=== PATIENT | male | born 1965 | race Caucasian/White ===

== ENCOUNTER 2020-02-28 14:59 | Inpatient (IN) ==
[2020-02-28] MEDS ORDERED: GLUCAGON 1 MG VIAL IM PRN (18:33)
[2020-02-28] MEDS ORDERED: DEXTROSE 50% 25 GM/50 ML VIAL IV PRN (18:33)
[2020-02-28] MEDS ORDERED: hydrALAZINE 20 MG/1 ML VIAL IV PRN (18:33)
[2020-02-28] MEDS ORDERED: ONDANSETRON 4 MG/2 ML VIAL IV PRN (18:33)
[2020-02-28] MEDS ORDERED: ACETAMINOPHEN 325 MG TABLET PO PRN (18:33)
[2020-02-28] MEDS ORDERED: METOPROLOL TARTRATE 50 MG TABLET PO SCH (18:40)
[2020-02-28] MEDS ORDERED: FUROSEMIDE 40 MG/4 ML VIAL IV ONE (18:53)
[2020-02-28 19:29] LABS: Basophils # 0.1 10*3/uL (0.0-0.2); Basophils % 0.5 % (0.0-0.8); Eosinophils % 0.2 % (0.00-10.9); Hematocrit 41.2 VOL% (42.0-52.0); Hemoglobin 14.1 GM/DL (14.0-18.0); Immature Granulocytes % 0.5 %; Immature Granulocytes Absolute 0.08 #; Lymphocytes % 11.6 % (21.2-54.2); Mean Corpuscular HGB Conc 34.2 GM/DL (32-36); Mean Corpuscular Volume 84.1 FL (87-102); Mean Platelet Volume 11.6 FL (9.6-12.0); Monocytes % 7.4 % (1.7-12.7); Neutrophils % 79.8 % (38.7-73.9); Platelet Count 349 T/CUMM (130-400); Red Cell Distribution Width 13.6 % (9.3-17.3); White Blood Count 16.9 T/CUMM (4-12)
[2020-02-28 19:38] LABS: INR 1.3; PT Patient Result 13.6 SECS (9.8-11.9); Partial Thromboplastin Time 29.2 SECS (23.9-33.8)
[2020-02-28 19:54] LABS: Risk Ratio 6.74; VLDL CHOLESTEROL 21.6 MG/DL
[2020-02-28 20:00] LABS: Albumin 3.4 G/DL (3.4-5.0); Bilirubin,Total 1.3 MG/DL (0.2-1.0); Calcium 8.8 MG/DL (8.5-10.1); Osmolality,Calculated 263.8 MOS/KG (273-304); Thyroid Stimulating Hormone 2.17 uIU/ml (0.358-3.74)
[2020-02-28] MEDS: APIXABAN 5 MG TABLET PO SCH (21:03)
[2020-02-28] MEDS: carvediloL 6.25 MG TABLET PO SCH (21:03)
[2020-02-28] MEDS: FOLIC ACID 1 MG TABLET PO SCH (21:04)
[2020-02-28] MEDS: cefTRIAXone 1,000 MG in SODIUM CHLORIDE 0.9% 100 ML IV SCH (21:04)
[2020-02-28] MEDS: dilTIAZem Drip 125 MG/125 ML PREMIX IV SCH (21:30)
[2020-02-28] MEDS: THIAMINE 100 MG TABLET PO SCH (23:50)
[2020-02-29] MEDS: INSULIN REGULAR 100 UNIT/ML SUBCUT SCH ×5 (00:04→23:16)
[2020-02-29 05:34] LABS: Barbiturates Screen,Urine Negative (Negative); Benzodiazepines Screen,Urine Negative (Negative); Cannabinoid Screen,Urine Negative (Negative); Opiate Screen,Urine Negative (Negative); Phencyclidine Screen,Urine Negative (Negative)
[2020-02-29 05:46] LABS: Basophils # 0.1 10*3/uL (0.0-0.2); Basophils % 0.5 % (0.0-0.8); Eosinophils # 0.1 10*3/uL (0.0-0.87); Eosinophils % 0.8 % (0.00-10.9); Hematocrit 39.8 VOL% (42.0-52.0); Hemoglobin 13.4 GM/DL (14.0-18.0); Immature Granulocytes % 0.7 %; Lymphocytes # 2.1 10*3/uL (1.4-4.0); Lymphocytes % 14.9 % (21.2-54.2); Mean Corpuscular HGB Conc 33.7 GM/DL (32-36); Mean Corpuscular Volume 84.9 FL (87-102); Mean Platelet Volume 11.7 FL (9.6-12.0); Neutrophils % 73.1 % (38.7-73.9); Platelet Count 341 T/CUMM (130-400); Red Blood Count 4.69 MC/CUMM (3.8-5.5); Red Cell Distribution Width 13.9 % (9.3-17.3); White Blood Count 14.3 T/CUMM (4-12)
[2020-02-29 05:51] LABS: Amorphous Crystals,Urine Moderate /HPF (Few); Bilirubin,Urine Negative (Negative); Blood, Urine Moderate mg/dL (Negative); Glucose,Urine (UA) Negative (Negative); Hyaline Casts,Urine 19 /LPF (0-3); Ketones,Urine Negative (Negative); Mucus,Urine Few /LPF (Occasional); Nitrite,Urine Negative (Negative); Protein,Urine 30 MG/DL; RBC,Urine 55 /HPF (0-4); Squamous Epithelial Cell,Urine Occasional /HPF (0-10); Urine Appearance CLOUDY (Clear); Urine Color Amber (Yellow); Urine Specific Gravity 1.012 (1.001-1.035); WBC,Urine 5 /HPF (0-6)
[2020-02-29 06:00] LABS: Calcium 8.6 MG/DL (8.5-10.1); Osmolality,Calculated 261.9 MOS/KG (273-304)
[2020-02-29] MEDS: dilTIAZem Drip 125 MG/125 ML PREMIX IV SCH ×2 (07:48→23:03)
[2020-02-29] MEDS: APIXABAN 5 MG TABLET PO SCH ×2 (09:43→22:18)
[2020-02-29] MEDS: FOLIC ACID 1 MG TABLET PO SCH (09:43)
[2020-02-29] MEDS: PANTOPRAZOLE 40 MG TABLET PO SCH (09:43)
[2020-02-29] MEDS: THIAMINE 100 MG TABLET PO SCH (09:43)
[2020-02-29] MEDS: carvediloL 6.25 MG TABLET PO SCH ×2 (09:43→16:40)
[2020-02-29] MEDS ORDERED: guaiFENesin 200 MG/10 ML UDCUP PO PRN (10:54)
[2020-02-29] MEDS: TAMSULOSIN 0.4 MG CAPSULE PO SCH (22:17)
[2020-02-29] MEDS: cefTRIAXone 1,000 MG in SODIUM CHLORIDE 0.9% 100 ML IV SCH (22:18)
[2020-03-01 04:56] LABS: Basophils # 0.1 10*3/uL (0.0-0.2); Basophils % 0.7 % (0.0-0.8); Eosinophils # 0.3 10*3/uL (0.0-0.87); Hematocrit 40.1 VOL% (42.0-52.0); Hemoglobin 13.5 GM/DL (14.0-18.0); Immature Granulocytes % 0.5 %; Immature Granulocytes Absolute 0.06 #; Lymphocytes # 2.5 10*3/uL (1.4-4.0); Lymphocytes % 20.6 % (21.2-54.2); Mean Corpuscular HGB Conc 33.7 GM/DL (32-36); Mean Corpuscular Volume 85.3 FL (87-102); Mean Platelet Volume 11.5 FL (9.6-12.0); Monocytes % 10.5 % (1.7-12.7); Neutrophils % 65.7 % (38.7-73.9); Platelet Count 263 T/CUMM (130-400); Red Cell Distribution Width 13.6 % (9.3-17.3); White Blood Count 12.3 T/CUMM (4-12)
[2020-03-01 05:28] LABS: Calcium 8.4 MG/DL (8.5-10.1); Osmolality,Calculated 259.1 MOS/KG (273-304)
[2020-03-01] MEDS: INSULIN REGULAR 100 UNIT/ML SUBCUT SCH ×4 (09:13→22:30)
[2020-03-01] MEDS: APIXABAN 5 MG TABLET PO SCH (10:05)
[2020-03-01] MEDS: METOPROLOL TARTRATE 25 MG TABLET PO SCH ×2 (10:05→22:25)
[2020-03-01] MEDS: PANTOPRAZOLE 40 MG TABLET PO SCH (10:05)
[2020-03-01] MEDS: FOLIC ACID 1 MG TABLET PO SCH (10:05)
[2020-03-01] MEDS: LOSARTAN 25 MG TABLET PO SCH (10:05)
[2020-03-01] MEDS: THIAMINE 100 MG TABLET PO SCH (10:06)
[2020-03-01] MEDS ORDERED: FUROSEMIDE 40 MG/4 ML VIAL IV ONE (10:12)
[2020-03-01] MEDS: carvediloL 6.25 MG TABLET PO SCH (10:15)
[2020-03-01] MEDS: FUROSEMIDE 40 MG/4 ML VIAL IV SCH (16:52)
[2020-03-01] MEDS: dilTIAZem Drip 125 MG/125 ML PREMIX IV SCH (20:53)
[2020-03-01] MEDS: POTASSIUM CHLORIDE 20 MEQ TABLET PO SCH (22:25)
[2020-03-01] MEDS: TAMSULOSIN 0.4 MG CAPSULE PO SCH (22:25)
[2020-03-01] MEDS: cefTRIAXone 1,000 MG in SODIUM CHLORIDE 0.9% 100 ML IV SCH (22:30)
[2020-03-02 06:01] LABS: Basophils # 0.1 10*3/uL (0.0-0.2); Basophils % 0.6 % (0.0-0.8); Eosinophils # 0.2 10*3/uL (0.0-0.87); Eosinophils % 1.9 % (0.00-10.9); Hematocrit 39.4 VOL% (42.0-52.0); Hemoglobin 13.5 GM/DL (14.0-18.0); Immature Granulocytes % 0.5 %; Immature Granulocytes Absolute 0.06 #; Lymphocytes # 1.7 10*3/uL (1.4-4.0); Lymphocytes % 14.6 % (21.2-54.2); Mean Corpuscular HGB Conc 34.3 GM/DL (32-36); Mean Corpuscular Volume 84.2 FL (87-102); Mean Platelet Volume 11.6 FL (9.6-12.0); Monocytes % 9.1 % (1.7-12.7); Neutrophils % 73.3 % (38.7-73.9); Platelet Count 284 T/CUMM (130-400); Red Blood Count 4.68 MC/CUMM (3.8-5.5); Red Cell Distribution Width 13.7 % (9.3-17.3); White Blood Count 11.8 T/CUMM (4-12)
[2020-03-02 06:21] LABS: Calcium 8.3 MG/DL (8.5-10.1); Osmolality,Calculated 259.9 MOS/KG (273-304)
[2020-03-02 06:24] LABS: Hypochromasia 1+; Microcytosis 1+
[2020-03-02 06:25] LABS: Platelet Estimate Normal
[2020-03-02] MEDS: INSULIN REGULAR 100 UNIT/ML SUBCUT SCH ×4 (07:22→21:32)
[2020-03-02] MEDS ORDERED: METOPROLOL TARTRATE 50 MG TABLET PO SCH (08:42)
[2020-03-02] MEDS: FUROSEMIDE 40 MG/4 ML VIAL IV SCH ×2 (08:45→15:36)
[2020-03-02] MEDS: THIAMINE 100 MG TABLET PO SCH (08:46)
[2020-03-02] MEDS: POTASSIUM CHLORIDE 20 MEQ TABLET PO SCH ×2 (08:47→21:31)
[2020-03-02] MEDS: FOLIC ACID 1 MG TABLET PO SCH (08:47)
[2020-03-02] MEDS: LOSARTAN 25 MG TABLET PO SCH (08:47)
[2020-03-02] MEDS: PANTOPRAZOLE 40 MG TABLET PO SCH (08:47)
[2020-03-02] MEDS: ASCORBIC ACID 500 MG TABLET PO SCH ×2 (11:56→21:31)
[2020-03-02] MEDS ORDERED: POTASSIUM CHLORIDE 20 MEQ TABLET PO ONE (13:30)
[2020-03-02] MEDS: dilTIAZem Drip 125 MG/125 ML PREMIX IV SCH (20:06)
[2020-03-02] MEDS: TAMSULOSIN 0.4 MG CAPSULE PO SCH (21:31)
[2020-03-02] MEDS: carvediloL 12.5 MG TABLET PO SCH (21:31)
[2020-03-02] MEDS: cefTRIAXone 1,000 MG in SODIUM CHLORIDE 0.9% 100 ML IV SCH (21:34)
[2020-03-03] MEDS: INSULIN REGULAR 100 UNIT/ML SUBCUT SCH ×4 (07:31→20:32)
[2020-03-03] MEDS: FUROSEMIDE 40 MG/4 ML VIAL IV SCH ×2 (08:13→15:52)
[2020-03-03] MEDS: POTASSIUM CHLORIDE 20 MEQ TABLET PO SCH ×2 (08:13→20:54)
[2020-03-03] MEDS: ASCORBIC ACID 500 MG TABLET PO SCH ×2 (08:13→20:55)
[2020-03-03] MEDS: carvediloL 12.5 MG TABLET PO SCH ×2 (08:13→20:55)
[2020-03-03] MEDS: PANTOPRAZOLE 40 MG TABLET PO SCH (08:14)
[2020-03-03] MEDS: LOSARTAN 25 MG TABLET PO SCH (08:14)
[2020-03-03] MEDS: THIAMINE 100 MG TABLET PO SCH (08:14)
[2020-03-03] MEDS: FOLIC ACID 1 MG TABLET PO SCH (08:14)
[2020-03-03] MEDS ORDERED: carvediloL 12.5 MG TABLET PO ONE (09:08)
[2020-03-03 09:33] LABS: Basophils # 0.1 10*3/uL (0.0-0.2); Basophils % 0.6 % (0.0-0.8); Eosinophils # 0.1 10*3/uL (0.0-0.87); Eosinophils % 1.2 % (0.00-10.9); Hematocrit 42.9 VOL% (42.0-52.0); Hemoglobin 14.4 GM/DL (14.0-18.0); Immature Granulocytes % 0.4 %; Immature Granulocytes Absolute 0.05 #; Lymphocytes # 1.9 10*3/uL (1.4-4.0); Lymphocytes % 16.9 % (21.2-54.2); Mean Corpuscular HGB Conc 33.6 GM/DL (32-36); Mean Corpuscular Volume 85.1 FL (87-102); Mean Platelet Volume 11.1 FL (9.6-12.0); Neutrophils % 70.9 % (38.7-73.9); Platelet Count 348 T/CUMM (130-400); Red Blood Count 5.04 MC/CUMM (3.8-5.5); White Blood Count 11.1 T/CUMM (4-12)
[2020-03-03 09:51] LABS: Calcium 8.7 MG/DL (8.5-10.1); Osmolality,Calculated 263.8 MOS/KG (273-304)
[2020-03-03] MEDS: TAMSULOSIN 0.4 MG CAPSULE PO SCH (20:55)
[2020-03-03] MEDS ORDERED: ATORVASTATIN 20 MG TABLET PO SCH (21:00)
[2020-03-04 05:57] LABS: Basophils # 0.1 10*3/uL (0.0-0.2); Basophils % 0.7 % (0.0-0.8); Eosinophils # 0.2 10*3/uL (0.0-0.87); Eosinophils % 1.7 % (0.00-10.9); Hematocrit 40.7 VOL% (42.0-52.0); Hemoglobin 13.5 GM/DL (14.0-18.0); Immature Granulocytes % 1.6 %; Immature Granulocytes Absolute 0.17 #; Lymphocytes # 1.9 10*3/uL (1.4-4.0); Lymphocytes % 17.6 % (21.2-54.2); Mean Corpuscular HGB Conc 33.2 GM/DL (32-36); Mean Corpuscular Volume 85.7 FL (87-102); Mean Platelet Volume 11.9 FL (9.6-12.0); Monocytes % 11.1 % (1.7-12.7); Neutrophils % 67.3 % (38.7-73.9); Platelet Count 293 T/CUMM (130-400); Red Blood Count 4.75 MC/CUMM (3.8-5.5); Red Cell Distribution Width 13.8 % (9.3-17.3); White Blood Count 10.7 T/CUMM (4-12)
[2020-03-04 06:19] LABS: Calcium 8.7 MG/DL (8.5-10.1); Osmolality,Calculated 268.2 MOS/KG (273-304)
[2020-03-04] MEDS: INSULIN REGULAR 100 UNIT/ML SUBCUT SCH (07:34)
[2020-03-04] MEDS: carvediloL 12.5 MG TABLET PO SCH (08:57)
[2020-03-04] MEDS: ASCORBIC ACID 500 MG TABLET PO SCH (08:57)
[2020-03-04] MEDS: POTASSIUM CHLORIDE 20 MEQ TABLET PO SCH (08:57)
[2020-03-04] MEDS: PANTOPRAZOLE 40 MG TABLET PO SCH (08:57)
[2020-03-04] MEDS: FOLIC ACID 1 MG TABLET PO SCH (08:57)
[2020-03-04] MEDS: THIAMINE 100 MG TABLET PO SCH (08:57)
[2020-03-04] MEDS: LOSARTAN 25 MG TABLET PO SCH (08:58)
[2020-03-04] MEDS: FUROSEMIDE 40 MG/4 ML VIAL IV SCH (08:58)
[2020-03-04] MEDS ORDERED: PNEUMOCOCCAL VACCINE (13 VALENT) 0.5 ML SYRINGE IM ONE (09:02)
[2020-03-04] MEDS ORDERED: INFLUENZA VIRUS VACCINE 0.5 ML SYRINGE IM ONE (09:02)
[2020-03-04 10:16] VITALS: BP 129/78
== END 2020-03-04 11:43 | disposition home or self-care (01) | DRG 308 ==
LOC: N.TELES → SUATTDRO 17:26
PROVIDERS: ADMIT Internal Medicine; ATTEND Emergency Medicine